=== PATIENT | female | born 1960 | race Caucasian/White ===

== ENCOUNTER 2024-03-16 16:08 | Emergency (ER) | payer OTHER ==
[2024-03-16] MEDS: Lactated Ringers 1,000 ML IV ONE ×2 (17:01→19:15)
[2024-03-16] MEDS: Sodium Chloride 0.9% 10 ML Syringe FLUSH PRN ×2 (17:02)
[2024-03-16 17:20] LABS: BASOPHILS ABSOLUTE AUTO 0.1 K/mm3 (0.0-0.2); BASOPHILS PERCENT AUTO 0.3 % (0.0-1.0); EOSINOPHILS PERCENT AUTO 0.2 % (0.0-6.0); HEMATOCRIT 44.4 % (37.0-47.0); HEMOGLOBIN 14.6 gm/dl (12.0-16.0); IMMATURE GRAN ABSOLUTE AUTO 0.05 K/mm3 (0.00-0.05); IMMATURE GRAN PERCENT AUTO 0.3 % (0.0-0.4); LYMPHOCYTES ABSOLUTE AUTO 2.4 K/mm3 (1.0-4.8); LYMPHOCYTES PERCENT AUTO 13.7 % (24.0-44.0); MEAN CORPUSCULAR HEMOGLOBIN 31.7 pg (28.0-32.0); MEAN CORPUSCULAR HGB CONC 32.9 g/dl (32.0-36.0); MEAN CORPUSCULAR VOLUME 96.3 fl (83.0-99.0); MEAN PLATELET VOLUME 10.4 fl (9.4-12.3); MONOCYTES ABSOLUTE AUTO 0.7 K/mm3 (0.0-0.8); MONOCYTES PERCENT AUTO 4.1 % (0.0-8.0); NEUTROPHILS ABSOLUTE AUTO 13.9 K/mm3 (1.8-7.7); NEUTROPHILS PERCENT AUTO 81.4 % (41.0-71.0); PLATELET COUNT,PLT 319 K/mm3 (150-400); RED BLOOD CELL COUNT 4.61 M/mm3 (4.10-5.30); WHITE BLOOD CELL COUNT,WBC 17.11 K/mm3 (3.9-11.3)
[2024-03-16 17:44] LABS: INR 0.99; PROTHROMBIN TIME 10.5 SECONDS (9.7-12.0)
[2024-03-16 17:45] LABS: PTT,PARTIAL THROMBOPLSTIN TIME 21.4 SECONDS (21.7-31.4)
[2024-03-16 17:52] LABS: A/G RATIO 1.8 (1-2); ALANINE AMINOTRANSFERASE,ALT 24 U/L (14-59); ALBUMIN 4.2 g/dl (3.4-5.0); ALKALINE PHOSPHATASE 65 U/L (46-116); ANION GAP 12.5 (5-15); ASPARTATE AMNIOTRANSFERASE,AST 14 U/L (15-37); BILIRUBIN TOTAL 0.6 mg/dL (0.2-1.0); BLOOD UREA NITROGEN,BUN 13 mg/dL (7-18); BUN/CREATININE RATIO 9.3 (14-18); CALCIUM 9.4 mg/dL (8.5-10.1); CARBON DIOXIDE,CO2 28 mEq/L (21-32); CHLORIDE,CL 107 mEq/L (98-107); CREATININE 1.4 mg/dL (0.55-1.02); EST CRCL DRUG DOSING (CG) 42.03 mL/min; ESTIMATED GFR 43 mL/min (>60); GLUCOSE RANDOM 183 mg/dL (70-99); POTASSIUM,K 4.5 mEq/L (3.5-5.1); PROTEIN TOTAL,TP 6.5 g/dl (6.4-8.2); SODIUM,NA 143 mEq/L (136-145)
[2024-03-16 17:56] LABS: LACTIC ACID 1.3 mmol/L (0.4-2.0); TROPONIN I HIGH SENSITIVITY < 4 pg/mL (<=51)
[2024-03-16 17:57] LABS: TSH 0.819 uIU/mL (0.358-3.74)
[2024-03-16] MEDS ORDERED: Sodium Chloride 0.9% 100 ML IV SCH (18:00)
[2024-03-16 18:03] LABS: CORONAVIRUS COVID-19 NAA NEGATIVE (NEGATIVE); INFLUENZA A NAA NEGATIVE (NEGATIVE); RESPIRATORY SYNCYTIAL VIR NAA NEGATIVE (NEGATIVE)
[2024-03-16 18:54] LABS: APPEARANCE,URINE SLT CLOUDY (Clear); BILIRUBIN,URINE NEGATIVE (Negative); COLOR,URINE YELLOW (Yellow); GLUCOSE,URINE NEGATIVE (Negative); KETONES,URINE TRACE (Negative); LEUKOCYTE ESTERASE,URINE NEGATIVE (Negative); NITRITE,URINE NEGATIVE (Negative); OCCULT BLOOD,URINE TRACE-INTACT (Negative); PROTEIN,URINE 2+ (Negative); UROBILINOGEN,URINE 0.2 (0.2-1.0)
[2024-03-16] MEDS: Iopamidol 755 Mg/ML 100 ML Bottle IVPUSH ONE (18:55)
[2024-03-16 19:14] LABS: SQUAMOUS EPITHELIAL CELLS,UR 0-5 /hpf (0-5); WBC,URINE 0-5 /hpf (0-5)
[2024-03-16 19:15] LABS: BACTERIA,URINE FEW /hpf (FEW); COARSE GRANULAR CASTS,URINE 0-5 /hpf (0-5); FINE GRANULAR CASTS,URINE 0-5 /lpf (0-5); HYALINE CASTS,URINE 0-5 /lpf (0-5); MUCUS,URINE FEW /hpf (FEW)
[2024-03-16] MEDS ORDERED: Sodium Chloride 0.9% 10 ML Syringe FLUSH PRN (19:51)
[2024-03-16] MEDS: Pantoprazole 40 MG Vial IVPUSH ONE (19:55)
[2024-03-16 19:56] LABS: BASOPHILS PERCENT AUTO 0.2 % (0.0-1.0); EOSINOPHILS PERCENT AUTO 0.1 % (0.0-6.0); HEMATOCRIT 40.7 % (37.0-47.0); HEMOGLOBIN 13.3 gm/dl (12.0-16.0); IMMATURE GRAN ABSOLUTE AUTO 0.05 K/mm3 (0.00-0.05); IMMATURE GRAN PERCENT AUTO 0.3 % (0.0-0.4); LYMPHOCYTES ABSOLUTE AUTO 1.8 K/mm3 (1.0-4.8); LYMPHOCYTES PERCENT AUTO 10.8 % (24.0-44.0); MEAN CORPUSCULAR HEMOGLOBIN 31.8 pg (28.0-32.0); MEAN CORPUSCULAR HGB CONC 32.7 g/dl (32.0-36.0); MEAN CORPUSCULAR VOLUME 97.4 fl (83.0-99.0); MEAN PLATELET VOLUME 10.1 fl (9.4-12.3); NEUTROPHILS ABSOLUTE AUTO 13.8 K/mm3 (1.8-7.7); NEUTROPHILS PERCENT AUTO 82.6 % (41.0-71.0); PLATELET COUNT,PLT 292 K/mm3 (150-400); RED BLOOD CELL COUNT 4.18 M/mm3 (4.10-5.30); WHITE BLOOD CELL COUNT,WBC 16.72 K/mm3 (3.9-11.3)
[2024-03-16] MEDS ORDERED: Pantoprazole 80 MG in Sodium Chloride 0.9% 100 ML IV SCH (21:45)
[2024-03-16] MEDS ORDERED: Octreotide 500 MCG in Sodium Chloride 0.9% 499 ML IV SCH (21:45)
[2024-03-16] MEDS: Octreotide 100 MCG/ML SDV IV ONE (22:10)
[2024-03-16] MEDS: Sodium Chloride 0.9% 500 ML ONE (22:10)
[2024-03-16] MEDS: Octreotide 500 MCG in Sodium Chloride 0.9% 499 ML IV SCH (22:11)
[2024-03-16] MEDS: metroNIDAZOLE/Normal Saline 500 MG in Premix Bag 1 BAG IV ONE (23:01)
[2024-03-16] MEDS: Levofloxacin/Dextrose 5%-Water 750 MG in Premix Bag 1 BAG IV ONE (23:21)
== END 2024-03-16 23:40 ==
LOC: JD.ED 16:08
DX: K92.2 Gastrointestinal hemorrhage, unspecified (principal); M25.30 Other instability, unspecified joint; Z79.899 Other long term (current) drug therapy
CPT/HCPCS: 0241U; 36415; 36430; 71275; 74177; 80053; 81001; 83605; 83690; 83735; 83880; 84443; 84484; 85025; 85610; 85730; 86850; 86900; 86901; 86922; 87040; 93005; 96361; 96365; 96366; 96367; 96368; 96375; 99285; J1836; J1956; J2354; J2470; J3490; J7040; J7120; P9016; Q9967; 93010; 99291